=== PATIENT | male | born 2000 | race Caucasian/White ===

== ENCOUNTER 2024-12-28 20:33 | Emergency (ER) | payer BC, SELFPAY ==
--- OUTSIDE RECORDS SUMMARY | 2024-09-30 03:30 | XMS_ITS ---
Author Organization [facility] Address [address] [place] [address] [place] [address] Care Team Providers Care Binman Name Role Phone Xochitl Maurice Primary Care Provider Allergies No Known Allergies Results Component Value Reference Range Notes Lyme Panel (B burgdor IgG+Ig M Ser Ql IB) Reviewed date:10/02/2024 10:12:28 AM Interpretation: Performing Lab: Notes/Report: Specimen Type: BLOOD SPECIMEN Ordering Facility: [facility] Address: [address] [place] [address] [facility] CLIA [id number] [address] [place] [address] Original Ordering Provider: XOCHITL MAURICE B burgdor IgG Ser Ql IB Positive Negative CDC criteria for a positive Western blot are the presence of >=5 bands for IgG. B burgdor IgG Patrn Ser IB-Imp p-93 p-58 p-45 p-39 p-30 p-23 B burgdor IgM Ser Ql IB Negative Negative CDC criteria for a positive Western Blot are the presence of >=2 bands for IgM. B burgdor IgM Patrn Ser IB-Imp No Bands Seen B burgdor Ab Patrn Ser IB-Imp IgG antibodies against Borrelia burgdorferi were present on Western Blot, but IgM antibodies were not detected. This pattern is consistent with a previous exposure to Borrelia burgdorferi. Performing Lab: see note [facility] - Laborer Stores Id information not found for OBX-specific review coordinator legend Reason For Referral Reason Whipple embedded tick h ead Diagnosis 1 Encounter for genera l adult medical examination without abnormal findings (Z00.00) Referral Organization [facility] Referring Provider First Name Xochitl Referring Provider Last Name Deyanira [facility] Specialty Dermatology General Notes Janette Fraga 09/20 08:54:35 AM >card to pt Referral Priority Routine REASON FOR VISIT New pt/ CPE, tick bite in may went to urgent care given rx but still doesnt seem to be healing right side, given prd taper and doxy 14 days Social History Tobacco Use: Social History Observation Description Date Details (start date - stop date) Never Smoker NA - NA Tobacco Control (Standard) Question Answer Notes Tobacco use: Nonsmoker Vital Signs Temperature 97.9 09/30/2024 Blood pressure systolic 126 10/01/19 25 Blood pressure diastolic 78 025 Heart Rate 70 09/30/2024 Height 72 in 09/30/2024 Weight 265 lbs 09/30/2024 BMI 35.94 kg/m2 09/30/2024 Encounters Encounter Location Date Provider Diagnosis [facility] [address] [place] [address] 09/30/2024 Xochitl Maurice Encounter for general adult medical examination without abnormal findings Z00.00 and Other fatigue R53.83 Assessments Encounter Date Diagnosis (ICD Code) Assessment Notes Treat ment Notes Treatment Clinical Notes 09/30/2024 Encounter for general adult medical examination without abnormal findings (ICD-10 - Z00.00) 09/30/2024 Other fatigue (ICD-10 - R53.83) Plan Of Treatment Referrals Referral Date Details 09/30/2024 09/30/2024, Whipple emb edded tick head Next Appt Details Follow Up: 1 Year,cpe, Reaso n: Provider Name:Xochitl arias, 10/09/2025 08:30:00 AM, [address], [place], [address], Progress Notes * Jan MONIQUE KDOB:2000 (24 yo M)Acc No.[id number]:09/30/2024 Progress Notes Patient: Jamil JOVANNYFlora Jan Albina Provider: Angel Maurice MD :2000 A ge:24 Y S ex:Male Date:09/30/2024 Address:[facility] [address], [place] Subjective: * Chief Complaints: * N ew pt/ CPETick bite in may went to urgent care given rx but still doesnt seem to be healing right sideGiven prd taper and doxy 14 days * HPI: D epression Screening: PHQ-2 (2015 Edition) L ittle interest or pleasure in doing things? N ot at all, F eeling down, depressed, or hopeless? N ot at all, T otal Score 0 . F alls no: review of MA notes, agree with findings as documented. * ROS: G eneral/Constitutional: Patient denies c hange in appetite, fever, headache. ? E NT: Patient denies d ecreased hearing, decreased sense of smell, difficulty swallowing, ear pain, nosebleed, swollen glands. R espiratory: Patient denies c hest pain, shortness of breath with exertion, shortness of breath at rest, pain with inspiration, hemoptysis, cough, wheezing. ? C ardiovascular: Patient denies c hest pain at rest, chest pain with exertion, claudication, cyanosis, dizziness, dyspnea on exertion, palpitations, shortness of breath. ? G astrointestinal: Patient denies a bdominal pain, blood in stool, change in bowel habits, constipation, diarrhea, difficulty swallowing, heartburn, nausea, vomiting, rectal bleeding. M en Only: Patient denies s crotal pain, scrotal swelling. ? G enitourinary: Patient denies b lood in the urine, difficulty urinating, frequent urination, painful urination. M usculoskeletal: Patient denies p ainful joints, swollen joints, weakness.? S kin: Patient denies c hanging moles, rash. N eurologic: Patient denies d izziness, gait abnormality, seizures. * Medical History: * Surgical History: t onsillectomy wisdom teeth 08/2024 * Hospitalization/Major Diagno stic Procedure: D enies Past Hospitalization * Family History: F ather: alive. M other: alive. 2 brother(s) - healthy. . * Social History: H ealth Habits: S treet Drugs: denies. Alcohol: socially. T obacco Use: T obacco Control (Standard) T obacco use: N onsmoker. * Medications: N one * Allergies: N .K.D.A.no[Allergies Verified] Objective: * Vitals: H t: 72 , Wt: 265, BMI: 35.94, Temp: 97.9, BP: 126/78, HR: 70. * Examination: G eneral Examination: GENERAL APPEARANCE: i n no acute distress, well developed, well nourished. E ARS: t ympanic membrane intact bilaterally. T HROAT: normal, uvula midline. N NACHO/THYROID: n nacho supple, full range of motion, no lymphadenopathy, no bruit, no jugular venous distention, no thyromegaly. S KIN: warm and dry. H EART: r egular rate and rhythm, no murmurs, rubs, gallops. L UNGS: c lear to auscultation bilaterally. ABDOMEN: s oft, nontender, nondistended, bowel sounds present, no masses, rebound or guarding, no hepatosplenomegaly, no bruits. E XTREMITIES x 4, full range of motion, no clubbing, cyanosis, or edema, normal muscle strength, strong pulses. N EUROLOGIC: n o focal deficits, cranial nerves 2-12 grossly intact. Assessment: * Assessment: 1. E ncounter for general adult medical examination without abnormal findings - Z00.00 (Primary) 2 . O ther fatigue - R53.83 Plan: * Treatment: * Procedure Codes: * Preventive Medicine: Your Preventative Wellness Plan : A LCOHOL MISUSE SCREENING T he Recommended Frequency is: as necessary for those with risk factors . B LOOD PRESSURE SCREENING T he Recommended Frequency is:Every Two years, if BP < /= 120/80 mmHg,Annually if BP > 120-139/80-89 mm Hg. B REAST CANCER SCREENING (MAMMOGRAM) T he Recommended Frequency is: every 2 years starting at age 40. C ERVICAL PAP SCREENING (PAP) T he Recommended Frequency is:Begin screening within 3 years of sexual activity onset or age 21(whichever comes first), every 3 years pap alone ages 21-29, every 5 years ages 30-64 with negative pap and HPV.. C HOLESTEROL TESTING T he Recommended Frequency is:regularly starting age 35 for men and 45 for women . C OLORECTAL CANCER SCREENING T he Recommended Frequency is:Begin screening at age 45-50 and screen annually if doing fecal occult blood stool (FOBS), every 5 years if doing sigmoidoscopy and FOBS,every 10 years if doing colonoscopy . D EPRESSION SCREENING T he Recommended Frequency is:annual screening for patients age 18 or older . O STEOPOROSIS SCREENING (Dexa) T he Recommended Frequency is:routinely ages 60-64 with risk factors,routinely ages 65+. S EXUALLY TRANSMITTED DISEASE SCREENING ?The Recommended Frequency is:as necessary for those with risk factors . V ISION SCREENING T he Recommended Frequency is:every 3 years up to age 40 and then annually after that . F NIXON VACCINE T he Recommended Frequency is:annually. P NEUMONIA VACCINE T he Recommended Frequency is: one dose of PCV20 at age 65,or one dose PCV15 followed by one dose PPSV23 1 year later. In high risk populations immunization may begin at age 19. Counseling: C ommunication to patient: C eveline for nutrition provided Y es discussed appropriate diet , C eveline for physical activity provided Y es minimum 150 min of cardiovascular exercise a week , S unscreen use Y es Recommend sunscreen use daily and monthly self exam of skin . T he recommendations for screening are resourced from the USPSTF guidelines.This plan was discussed with the patient. * Follow Up: 1 Year,cpe * Images: * Sign off status: Completed true * Provider: Angel Maurice MD Date: 0 09/30/2024 Generated for Tony segovia/Gaby/eTludyitting on: 02/28/2024 09:00 PM EST History and Physical Notes * HPI (History of Present Illness) Category Sub-Category Detail Notes Depression Screening PHQ-2 (2015 Edition) Little interest or pleasure in doing things?: Not at all Feeling down, depressed, or hopeless?: N ot at all Total Score: 0 Examination Category Sub-Category Detail Notes General Examination GENERAL APPEARANCE: in no ac [place] distress, well developed, well nourished EARS: tympanic membrane in tact bilaterally THROAT: normal, uvula midlin e NECK/THYROID: neck supple, full ra nge of motion, no lymphadenopathy, no bruit, no jugular venous distention, no thyromegaly HEART: regular rate and rhy thm, no murmurs, rubs, gallops LUNGS: clear to auscultatio n bilaterally ABDOMEN: soft, nontender, non distended, bowel sounds present, no masses, rebound or guarding, no hepatosplenomegaly, no bruits NEUROLOGIC: no focal deficits, c ranial nerves 2-12 grossly intact SKIN: warm and dry EXTREMITIES x 4, full range of m otion, no clubbing, cyanosis, or edema, normal muscle strength, strong pulses Consultation Request Notes Referral Date Referring Provider Referred Provider Not es 09/30/2024 Xochitl Maurice Apex embe dded tick head
--- OUTSIDE RECORDS SUMMARY | 2024-10-03 10:45 | XMS_ITS ---
Author Organization [facility] Address [address] [place] [address] Care Team Providers Care Logging Tractor Operator Swamp Name Role Phone Xochitl Mcmillan Primary Care Provider REASON FOR VISIT question Encounters Encounter Location Date Provider Diagnosis On License [facility] [address] [place] [address] 10/03/2024 Xochitl Mcmillan Plan Of Treatment Next Appt Details Provider Name:Xochitl arias, 10/09/2025 08:30:00 AM, [address], [place], [address], Progress Notes * Jan MONIQUE KDOB:2000 (24 yo M)Acc No.[id number]:10/03/2024 Patient: Jamil Jan GRANT :2000 A ge:24 Y S ex:Male Address:[address] [place] [address] [address], [place], [address] * true * Date: Generated for Printi ng/Faxing/eTransmitting on: 02/28/2024 08:59 PM EST
[2024-12-28 20:52] VITALS: BP 150/82; PULSE 92; RESP 16; TEMP 36.8; O2SAT 99; BMI 30.5
--- OUTSIDE RECORDS SUMMARY | 2024-12-28 21:00 | XMS_ITS | Clinical Summary ---
Author Organization [facility] Address [address] [place] [address] Care Team Providers Care Business Office Technology Instructor Name Role Phone Unavailable Primary Care Provider Unavailabl e Allergies No known active allergies Encounters Date Type Department Care Team Description 09/30/2024 Lab Requisition [facility] [address] [place] [address] Xochitl Mcmillan MD Encounter for general adult medical examination without abnormal findings from Last 3 Months Immunizations Immunization Administration Dates Next Due tetanus diphtheria pertussis (Tdap) vaccine, age 7+ yr (ADACEL, BOOSTRIX) 02/22/2023 Social History Tobacco Use Types Packs/Day Years Used Date Smoking Tobacco: Never Assessed Area Deprivation Index Answer Date Devante rded National Score (1-100), lower number is lower ri sk 45 02/23/2023 State Score (1-10), lower number is lower risk 2 02/23/2023 Data from: https://www.neighborhoodatlas.medicine.[facility].edu/. Last address used for calculation [address] [place] [address] 02/23/2023 Sex and Gender Information Value Date Recorded Sex Assigned at Not on file Legal Sex Male 5:33 PM EDT Gender Identity Not on file Sexual Orientation Not on file Last Filed Vital Signs Vital Sign Reading Time Taken Comments Blood Pressure 132/81 02/22/2023 10:00 PM EST Pulse 68 02/22/2023 10:00 PM EST Temperature 37.2 C (99 F) 02/22/2023 6:22 PM EST Respiratory Rate 18 02/22/2023 10:00 PM EST Oxygen Saturation 100% 02/22/2023 10:00 PM EST Inhaled Oxygen Concentration - - Weight - - Height - - Body Mass Index - - Plan of Treatment Health Maintenance Due Date Last Done Comments Peds To Adult Transition Ini tial Discussion 2010 Peds To Adult Transition Vickie ual Assessment 2012 HPV Vaccine (1 - Male 3-dose series) 2013 Anxiety Screening 2016 Depression Screening 2016 HIV Screening 2016 Hepatitis C Screening 2016 Covid-19 Vaccine (2 - 2024-2 6 season) 2024 12/07/2020 Influenza Vaccine (#1) 2024 12/26/2008 DTaP,Tdap,Td Vaccine (8 - Td or Tdap) 02/22/2033 02/22/2023, 09/09/2010, 09/04/2003, Additional history exists Hepatitis B Vaccine Completed 02/09/1999, 2000, 2000 Procedures Procedure Name Priority Date/Time Associated Diagnosis Comments LYME AB PANEL WBLOT Routine 09/30/2024 8 :38 AM EDT Encounter for general adult medical examination without abnormal findings from Last 3 Months Results * (ABNORMAL) LYME AB PANEL WBLOT (09/30/2024 8:38 AM EDT) Lyme IgG Western Blot Positive(A) Negative 10/01/2024 3:24 PM T [facility] Comment:CDC criteria for a p ositive Western blot are the presence of >=5 bands for IgG. Lyme IgG Bands p-93 p-58 p-45 p-39 p-30 p-23 10/01/2024 3:24 PM EDT [facility] Lyme IgM Western Blot Negative Negative 10/01/2024 3:24 PM T [facility] Comment:CDC criteria for a p ositive Western Blot are the presence of >=2 bands for IgM. Lyme IgM, Bands No Bands Seen 2024 3:24 PM T [facility] Interpretation (Lyme Abs/WB) IgG antibodies against Borrelia burgdorferi were present on Western Blot, but IgM antibodies were not detected. This pattern is consistent with a previous exposure to Borrelia burgdorferi. 10/01/2024 3:24 PM EDT [facility] Blood BLOOD SPECIMEN / Unknown Venipuncture / Unknown 09/30/2024 8:38 AM EDT 09/30/2024 4:23 PM EDT us Xochitl Mcmillan MD LABORATORY Final Result [facility] [address] [place] [address], [place] from Last 3 Months Insurance [employer] PPO
--- OUTSIDE RECORDS SUMMARY | 2024-12-28 21:00 | XMS_ITS | Clinical Summary ---
Author Organization [facility] Address [address] [place] [address] Phone Care Team Providers Care Diploma Medical Assistant Name Role Phone Generic, External Data Provider Primary Care Pro vider Unavailable Allergies No known active allergies Medications cyclobenzaprine (Flexeril) 10 mg tabletIndicatio ns:Strain of left trapezius muscle, initial encounter Take 1 tablet (10 mg) by mouth 3 times a day as needed for muscle spasms. 17 tablet 05/10/2024 Active lidocaine (Lidoderm) 5 % patchIndication s:Strain of left trapezius muscle, initial encounter Place 1 patch over 12 hours on the skin once daily. Remove & discard patch within 12 hours or as directed by . 5 patch 05/10/2024 Active Social History Tobacco Use Types Packs/Day Years Used Date Smoking Tobacco: Never Smokeless Tobacco: Never Tobacco Cessation:Counseling Given: Not Answered Alcohol Use Standard Drinks/Week Comments Yes 0 (1 standard drink = 0.6 oz pur e alcohol) occasionally Sex and Gender Information Value Date Recorded Sex Assigned at Not on file Legal Sex Male 4:52 AM EDT Gender Identity Not on file Sexual Orientation Not on file Last Filed Vital Signs Vital Sign Reading Time Taken Comments Blood Pressure 138/90 05/10/2024 5:18 AM EDT Pulse 72 05/10/2024 5:18 AM EDT Temperature 36.1 C (97 F) 05/10/2024 5:18 AM EDT Respiratory Rate 18 05/10/2024 5:18 AM EDT Oxygen Saturation 100% 05/10/2024 5:18 AM EDT Inhaled Oxygen Concentration - - Weight 104 kg (230 lb) 05/10/2024 5:18 AM EDT Height 182.9 cm (6') 05/10/2024 5:18 AM EDT Body Mass Index 31.19 05/10/2024 5:18 AM EDT Plan of Treatment Health Maintenance Due Date Last Done Comments HIV Screening 1998 Lipid Panel 1998 Yearly Adult Physical 1998 MMR Vaccines (1 of 1 - Stand zaki series) 05/06/1999 HPV Vaccines (1 - Male 3-dos e series) 2013 Hepatitis C Screening 2016 Hepatitis B Vaccines (1 of 3 - 19+ 3-dose series) 2017 Influenza Vaccine (#1) 2024 COVID-19 Vaccine (1 - 2024-2 6 season) 2024 DTaP/Tdap/Td Vaccines (2 - T d or Tdap) 02/22/2033 02/22/2023 Zoster Vaccines (1 of 2) 2048 HIB Vaccines Aged Out No longer eligi ble based on patient's age to complete this topic Hepatitis A Vaccines Aged Out No long er eligible based on patient's age to complete this topic IPV Vaccines Aged Out No longer eligi ble based on patient's age to complete this topic Meningococcal Vaccine Aged Out No nancy jah eligible based on patient's age to complete this topic Pneumococcal Vaccine: Pediat rics and At-Risk Adult Patients Aged Out No longer lauren gible based on patient's age to complete this topic Rotavirus Vaccines Aged Out No longer eligible based on patient's age to complete this topic Insurance [facility] Care Teams Diploma Medical Assistant Relationship Specialty Start Date End Date Generic, External Data Provider n/[place] [id number] PCP - General 05/10/24
--- OUTSIDE RECORDS SUMMARY | 2024-12-28 21:00 | XMS_ITS | Patient Health Record ---
Author Organization [facility] Address [address] [place] [address] [address] [place] [address] Care Team Providers Care Tetryl Nitrator Operator Name Role Phone Cathi Maurice Primary Care Provider Allergies No Known Allergies Results Component Value Reference Range Notes Lyme Panel (B burgdor IgG+Ig M Ser Ql IB) Reviewed date:10/02/2024 10:12:28 AM Interpretation: Performing Lab: Notes/Report: Specimen Type: BLOOD SPECIMEN Ordering Facility: [facility] Address: [address] [place] [address] [facility] CLIA [id number] [address] [place] [address] Original Ordering Provider: CATHI MAURICE B burgdor IgG Ser Ql IB [...] to Borrelia burgdorferi. Performing Lab: see note [facility] - Manufacturing Group Leader Id information not found for OBX-specific mri special procedures technologist legend Reason For Referral Reason [place] embedded tick h ead Diagnosis 1 Encounter for genera l adult medical examination without abnormal findings (Z00.00) Referral Organization [employer] Referring Provider First Name Cathi Referring Provider Last Name Deyanira [facility]erred Provider Specialty Dermatology General Notes Box, Janette Ojeda 09/20 08:54:35 AM >card to pt Referral Priority Routine Social History Tobacco Use: Social History Observation Description Date Details (start date - stop date) Never Smoker NA - NA Tobacco Control (Standard) Question Answer Notes Tobacco use: Nonsmoker Vital Signs Heart Rate 70 09/30/2024 Temperature 97.9 09/30/2024 Blood pressure diastolic 78 09/30/2024 Height 72 in 09/30/2024 Blood pressure systolic 126 09/30/2024 Weight 265 lbs 09/30/2024 BMI 35.94 kg/m2 09/30/2024 Encounters Encounter Location Date Provider Diagnosis [facility] [address] [place] [address] 09/30/2024 Cathi Maurice Encounter for general adult medical examination without abnormal findings Z00.00 and Other fatigue R53.83 [facility] [address] [place] [address] 10/03/2024 Cathi Maurice Assessments Encounter Date Diagnosis (ICD Code) Assessment Notes Treat ment Notes Treatment Clinical Notes 09/30/2024 Encounter for general adult medical examination without abnormal findings (ICD-10 - Z00.00) 09/30/2024 Other fatigue (ICD-10 - R53.83) Plan Of Treatment Next Appt Details Provider Name:Cathi arias, 10/09/2025 08:30:00 AM, [address], [place], [address], Insurance Providers Payer Name Payer Address Payer Phone Subscriber Number Group Number Insured Name Patient Relationship to Insured Coverage Start Date Coverage End Date [employer] BS [address] [place] [address] [id number] Jan Monique Self - patient is the insured Medical (General) History Surgical History Surgery Date(Month/Year) tonsillectomy wisdom teeth 08/2024
--- OUTSIDE RECORDS SUMMARY | 2024-12-28 21:00 | XMS_ITS | Encounter Summary ---
Author Organization [facility] Address [address] [place] [address] Care Team Providers Care Senior Php Software Developer Name Role Phone Unavailable Primary Care Provider Unavailabl e Source Comments In the event this information is protected by the Federal Confidentiality of Alcohol and Drug AbusePatient Records regulations: The Federal rules restrict any use of the information to criminally investigate or prosecute any alcohol or drug abuse patient.[facility] Encounter Details Date Type Department Care Team (Late st Contact Info) Description 09/30/2024 Lab Requisition [facility] [address] [place] [address] Xochitl Mcmillan MD [address] [address] Encounter for general adult medical examination without abnormal findings Social History Tobacco Use Types Packs/Day Years Used Date Smoking Tobacco: Never Assessed Area Deprivation Index Answer Date Devante rded National Score (1-100), lower number is lower ri sk 45 02/23/2023 State Score (1-10), lower number is lower risk 2 02/23/2023 Data from: https://www.neighborhoodatlas.medicine.[facility].edu/. Last address used for calculation [address] 02/23/2023 Sex and Gender Information Value Date Recorded Sex Assigned at Not on file Legal Sex Male 5:33 PM EDT Gender Identity Not on file Sexual Orientation Not on file documented as of this encounter Plan of Treatment Not on file documented as of this encounter Procedures Procedure Name Priority Date/Time Associated Diagnosis Comments LYME AB PANEL WBLOT Routine 09/30/2024 8 :38 AM EDT Encounter for general adult medical examination without abnormal findings documented in this encounter Results * (ABNORMAL) LYME AB PANEL WBLOT (09/30/2024 8:38 AM EDT) Lyme IgG Western Blot Positive(A) Negative 10/01/2024 3:24 PM EDT [facility] Comment:CDC criteria for a p ositive Western blot are the presence of >=5 bands for IgG. Lyme IgG Bands p-93 p-58 p-45 p-39 p-30 p-23 10/01/2024 3:24 PM EDT [facility] Lyme IgM Western Blot Negative Negative 10/01/2024 3:24 PM EDT [facility] Comment:CDC criteria for a p ositive Western Blot are the presence of >=2 bands for IgM. Lyme IgM, Bands No Bands Seen 2024 3:24 PM EDT [facility] Interpretation (Lyme Abs/WB) IgG antibodies against Borrelia burgdorferi were present on Western Blot, but IgM antibodies were not detected. This pattern is consistent with a previous exposure to Borrelia burgdorferi. 10/01/2024 3:24 PM EDT [facility] Blood BLOOD SPECIMEN / Unknown Venipuncture / Unknown 09/30/2024 8:38 AM EDT 09/30/2024 4:23 PM EDT us Xochitl Mcmillan MD LABORATORY Final Result [facility] [address] [facility] [address] [address], documented in this encounter Visit Diagnoses Diagnosis Encounter for general adult medical examination without abnormal findings Unspecified general medical examination documented in this encounter
--- NOTE | 2024-12-28 21:11 | ED_ITS ---
<Statement entered by Angel Kelly MD - 12/28/24 22:57> I was consulted by the ROX, and we discussed the complexity of the problems being addressed. I approved the treatment and management plan for this patient's care in the emergency department, thus performing a substantive portion of the medical decision making. Angel Kelly MD, RAQUEL, FACEP Discharge Plan Disposition Patient Disposition: Home, Self-Care Referrals Follow up/Referrals: Provider,Referral, MD [Primary Care Provider, Medical] - See instructions Activity Restrictions/Add. Instructions Additional Instructions/Restrictions: Today you were evaluated in the emergency department for a laceration. You had sutures placed. Please have the sutures removed in 7 days. Keep the dressing on for 24 hours, after that remove and exposed to air. You may wash your hands with regular soap and water after 24 hours. Clinical Impressions Clinical Impression: Laceration Instructions Patient Instructions: DI for Laceration Repair Print Language Print Language: Korean Discharge ED Provider: Angel Kelly General Adult HPI General Chief complaint: Wound/Laceration Stated complaint: AO 11-8 cut finger Time Seen by Provider: 12/28/24 20:53 Mode of Arrival: Ambulatory Source of Information: Patient Description of Symptoms (Recalled from ER Triage Doc. by RN): Pt presents to ED for a laceration to the R thumb. Pt states he was cleaning a knife and accidentally hit his thumb. Pt states this happened approx 2 hrs ago and he's been wrapping it to control bleeding. Pt has significant laceration. ROX bedside. Pt is A&O*4 and rates pain 8/10. History of Present Illness HPI narrative: patient is a 24-year-old healthy male who presents to the ED for a laceration on his right thumb. Related Data Allergies Allergy/AdvReac Type Severity Reaction Status Date / Time No Known Allergies Allergy Verified 12/28/24 20:59 [facility] Disclaimer: The information contained in this section may have been updated after the patient was seen, as this information can be updated by other users. Social History Smoking Status: Unknown if ever smoked alcohol intake: never current occupational status: unemployed Travel in the last 8 weeks?: None ROS Obtained: Yes Systems reviewed as appropriate & no additional complaints except as documented Physical Exam General General appearance: alert Head Head exam: atraumatic Eye Eye exam: Present PERRL Neck Neck exam: Present full ROM Respiratory Respiratory exam: Present normal lung sounds bilaterally Cardiovascular Cardiovascular exam: Present regular rate Neurological Exam Neurological exam: Present alert and oriented X3 Skin Skin exam: Present other (half lerma shaped lac, 2 cm in length ) Medical Decision Making Medical Records Screening: Per USPSTF and CDC recommendations, given the prevalence of disease in our region, it is our hospital?s policy to screen for HIV and viral Hepatitis for all patients aged 18 and over and those with ongoing risk factors. Rober Inquiry Pt receiving controlled substance: No Vital Signs: 12/28/24 20:52 12/28/24 21:22 Temperature 98.2 F 98.3 F Temperature Source Oral Oral Pulse Rate 84 Pulse Rate [Left] 92 H Respiratory Rate 16 16 Blood Pressure 140/78 Blood Pressure [Right Arm] 150/82 H Blood Pressure Mean [Right Arm] 104 02 Sat by Pulse Oximetry 99 Oxygen Delivery Method Room Air Room Air Medical Decision Narrative: In summary, patient is a 24-year-old healthy male who presents to the ED for a laceration on his right thumb. Laceration is half-lerma shaped, approximately 2 cm in length, actively bleeding however controlled with pressure. Patient states he was about to clean a deer when he cut his right thumb. He has full ROM, no numbness or tingling. Neurovascular status intact. Denies any other injuries. Procedure performed, area cleaned with Hibiclens. 1% lidocaine without epi, approximately 1 mL used. 4-0 Ethilon sutures, 6 sutures placed. Nonadherent dressing applied after. Discussed with patient to have sutures removed in 7 days, we discussed signs and symptoms of infection. His tetanus is up-to-date within the past 2 years. We discussed follow-up with PCP and return precautions to the ED. He verbalized understanding. Critical Care Critical Care Time Critical Care Time: No
[2024-12-28 21:22] VITALS: BP 140/78; PULSE 84; RESP 16; TEMP 36.8; O2SAT 99
== END 2024-12-28 21:25 | disposition home or self-care (01) ==
PROVIDERS: Emergency Provider Student in an Organized Health Care Education/Training Program
DX: S61.011A Laceration without foreign body of right thumb without damage to nail, initial encounter (principal); W26.0XXA Contact with knife, initial encounter
CPT/HCPCS: 12001; 99282